=== PATIENT | female | born 2005 | race Caucasian/White ===

== ENCOUNTER 2025-07-09 18:08 | Emergency (ER) | payer BC, SELFPAY ==
[2025-07-09 18:12] VITALS: BP 155/101
[2025-07-09 18:54] LABS: Hematocrit 40.8 % (37.0-47.0); Hemoglobin 14.1 g/dL (12.0-16.0); Mean Corp Hgb Conc. 34.6 g/dL (33.0-37.0); Mean Corpuscular Volume 89.3 fL (81.0-99.0); Nucleated Red Blood Cells % 0 %; Platelet Count 316 10^3/uL (130-400); Red Cell Dist. Width 12.1 % (11.5-14.5)
[2025-07-09 19:15] LABS: Blood Urea Nitrogen 7 mg/dl (7-17); Calcium 9.7 mg/dl (8.4-10.2); Carbon Dioxide 24 mmol/L (22-30); Chloride 104 mmol/L (98-107); Glucose 98 mg/dl (70-99); Potassium 4.2 mmol/L (3.5-5.1); Sodium 138 mmol/L (135-145); eGFR > 60.00
--- NOTE | 2025-07-09 19:17 | ED.GENMED ---
History of Present Illness
General
Chief Complaint: Heart Rate Problem
Time Seen by Provider: 07/09/25 18:51
History of Present Illness
History of Present Illness:
20-year-old female with history of anxiety presents the emergency department for evaluation of heart palpitations. In mid May she developed acute onset of racing heartbeat and shortness of breath, was seen at [facility] and had an
unremarkable workup other than mild hypokalemia. States that since that time she has felt dizzy and generally weak. Had a recurrent event of palpitations today bringing her to the ER. Symptoms do feel better at this time compared to earlier in
the day. Denies any leg swelling. Denies any illicit substance use or alcohol use. She is maintained on Vyvanse and Zoloft, states that on occasion when she forgets to take her medication she feels as though the symptoms do improve. Record
review through [facility] chart access shows that the patient had labs including D-dimer and troponin at [facility] that were unremarkable except a potassium of 3.3
Past History
Social History
Tobacco: Former smoker
Alcohol: Occasional
Drug: None
Review of Systems
Review of Systems
Allergies reviewed?: Yes
All Other Systems: ROS reviewed and negative except as documented in HPI and ROS
Phy Exam
Physical Exam
Physical Exam:
GEN: Well appearing, NAD, WDWN
HEENT: Oral mucosa moist, no scleral icterus
Cardiac: Slightly tachycardic, irregular, no murmur
Lung: No respiratory distress, no tachypnea, lungs CTAB
MSK: No gross deformity or injuries
Skin: Good color, no pallor or jaundice, no rashes
Neuro: AO x3, moves all extremities freely
Psych: Calm, cooperative
Course
Orders/Labs/Results
Orders:
Orders
07/09/25 18:10
EKG [Electrocardiogram (*1)] Urgent
Reason for Study: Bradycardia / Tachycardia
EKG- Treatment ONCE
07/09/25 18:46
Basic Metabolic Panel Urgent
CBC/With Diff [Complete Blood Count/With Diff] Urgent
HCG, Serum Qualitative Screen Urgent
Comment: ADDON
TSH Urgent
07/09/25 19:16
Add On- LAB Urgent
Tests Added?: TSH
07/09/25 20:23
Add On- LAB Urgent
Tests Added?: serum hcg qual
Abnormal Lab Results
07/09/25
18:46
Lymphocytes % 20.2 L %
(20.5-51.1)
07/09/25 18:46
07/09/25 18:46
Vital Signs
Initial and Last Documented VS:
Initial Vital Signs
Temp Pulse Resp BP Pulse Ox
98.2 F 115 16 155/101 93
07/09/25 18:12 07/09/25 18:12 07/09/25 18:12 07/09/25 18:12 07/09/25 18:12
Last Documented Vital Signs
Temp Pulse Resp BP Pulse Ox
98.2 F 105 19 137/69 100
07/09/25 18:12 07/09/25 21:15 07/09/25 21:15 07/09/25 20:20 07/09/25 20:22
MDM/Problems Addressed
MDM/Problems Addressed:
Because the patient's episodes of tachycardia is not clear. She did just complete a Holter monitor for her tissue specialist that will be returned next week. She remained stable in the emergency department with no evidence of tacky dysrhythmia. Labs
are reassuring. May be induced autonomic etiology to her inappropriate sinus tachycardia. Did discuss potential benefit of beta-german but will defer this to cardiology evaluation. Did not obtain cardiac enzymes or D-dimer as these were
completed at [facility] during her first episode and were negative, low clinical suspicion for ACS or PE stable for continued outpatient workup
*Pulse Oximetry
SaO2: 93
Oxygen Mode of Delivery: Room air
Patient hypoxic: no
*Critical Care Note
Total Time (30-74mins, 75-104mins- exclusive of procedures): Not Applicable
ED Attending Note
-
Portions of this chart may have been created with voice recognition software.� Occasional wrong word or��sound alike� substitutions may have occurred due to the inherent limitations of voice recognition software.
Discharge Plan
Departure
Patient Disposition: Home (Routine Discharge)
Date of Disposition: 07/09/25
Time of Disposition: 21:11
Patient with high blood pressure during this ER visit?: No
Discharge Problem:
Inappropriate sinus tachycardia
Instructions: Palpitations (DC)
Referrals:
Marisela Reyes, DO [Family Provider]
Ranadll Jones MD [Active, Cardiology]
Interventions
Interventions:
*Risk Screen - Suicide Last Done: 07/09/25 18:12
*General Assessment Last Done: 07/09/25 19:32
*Neglect/Abuse Screening Last Done: 07/09/25 18:12
*ED- Fall Risk Assessment Last Done: 07/09/25 19:32
*ED COVID-19 Vaccine History Last Done: 07/09/25 19:32
*ED Influenza Vaccine History Last Done: 07/09/25 19:32
*Nursing Disposition Last Done: 07/09/25 21:40
ED- Cardiac Assessment Last Done: 07/09/25 19:31
ED- Pulmonary Assessment Last Done: 07/09/25 19:31
Discharge Date and Time
Discharge Date/Time: 07/09/25 21:53
Print Language: [place]
[2025-07-09 20:20] VITALS: BP 137/69
[2025-07-09 20:28] LABS: TSH 1.49 uIU/ml (0.47-4.68)
[2025-07-09 21:12] LABS: HCG, Serum Qualitative Screen Negative
== END 2025-07-09 21:53 | disposition home or self-care (01) ==
LOC: EMR 18:08
PROVIDERS: Emergency Medicine; EMERGENCY PHYSICIAN Student in an Organized Health Care Education/Training Program; FAMILY PHYSICIAN Internal Medicine
DX: I47.11 Inappropriate sinus tachycardia, so stated (principal); Z87.891 Personal history of nicotine dependence; F41.9 Anxiety disorder, unspecified; Z91.148 Patient's other noncompliance with medication regimen for other reason
CPT/HCPCS: 99284; 80048; 84443; 84703; 85025; 93005